=== PATIENT | male | born 1985 | race Hispanic/Latino ===

== ENCOUNTER 2016-10-09 22:29 | Emergency (ER) | payer SELFPAY ==
[2016-10-10] MEDS ORDERED: CEFTRIAXONE 250 MG VIAL ONE (02:00)
[2016-10-10] MEDS ORDERED: LIDOCAINE 1% MDV 20 ML ONE (02:00)
== END 2016-10-10 02:29 | disposition home or self-care (01) ==
LOC: ER 22:29
DX: A56.01 Chlamydial cystitis and urethritis (principal)
CPT/HCPCS: 81003; 87088; 87491; 87591; 96372